=== PATIENT | female | born 2000 | race Caucasian/White ===

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

== ENCOUNTER 2018-01-13 08:00 | Outpatient (CLI) | payer OTHER | END 2018-01-13 08:01 | disposition home or self-care (01) | LOC: LAB.R 08:00 | PROVIDERS: ATTEND Physician Assistant | DX: N39.0 Urinary tract infection, site not specified (principal) | CPT/HCPCS: 87086; 87181 ==

== ENCOUNTER 2023-03-04 07:45 | Outpatient (CLI) | payer OTHER ==
--- NOTE | 2023-03-04 17:59 | XRAY Report ---
PROCEDURE: Foot 3 View LT INDICATIONS: LEFT 5TH MT FRACTURE TECHNIQUE: 3 views of the foot were acquired. COMPARISON: X-ray foot 02/22/2023 FINDINGS: Bones: There is mild appearance of increased diastases of the fifth metatarsal base fracture. Soft tissues: No suspicious soft tissue calcifications or masses. IMPRESSION: Mild increased diastases of fifth metatarsal base fracture. Reviewed by: Myra Gross MD on 03/04/2023 5:57 PM PDT Approved by: Myra Gross MD on 03/04/2023 5:57 PM PDT Station ID: [id number]
== END 2023-03-04 23:59 | disposition home or self-care (01) ==
LOC: DI.WOS 07:45
PROVIDERS: ATTEND Physician Assistant Surgical
DX: S92.352A Displaced fracture of fifth metatarsal bone, left foot, initial encounter for closed fracture (principal)

== ENCOUNTER 2023-03-25 08:00 | Outpatient (CLI) | payer OTHER ==
--- NOTE | 2023-03-25 16:20 | XRAY Report ---
PROCEDURE: Foot 3 View LT INDICATIONS: LEFT 5TH MT FRACTURE TECHNIQUE: 3 views of the foot were acquired. COMPARISON: None. FINDINGS: Bones: Slight interval bone remodeling at the fracture at the base of the fifth metatarsal. Decrease d diastases. Soft tissues: No suspicious soft tissue calcifications or masses. IMPRESSION: Mild interval healing of the fifth metacarpal fracture. Reviewed by: Jack Epps on 03/25/2023 4:19 PM PDT Approved by: Jack Epps on 03/25/2023 4:19 PM PDT Station ID: [id number]
== END 2023-03-25 23:59 | disposition home or self-care (01) ==
LOC: DI.WOS 08:00
PROVIDERS: ATTEND Physician Assistant Surgical
DX: S92.352D Displaced fracture of fifth metatarsal bone, left foot, subsequent encounter for fracture with routine healing (principal)

== ENCOUNTER 2023-04-27 15:00 | Outpatient (CLI) | payer OTHER ==
[2023-04-27 20:48] LABS: NEISSERIA GONORRHOEAE DNA NEGATIVE (NEGATIVE); TRICHOMONAS VAGINALIS DNA NEGATIVE (NEGATIVE)
[2023-04-27 20:52] LABS: CHLAMYDIA TRACHOMATIS DNA POSITIVE (NEGATIVE)
== END 2023-04-27 15:15 | disposition home or self-care (01) ==
LOC: LAB.N 15:00
PROVIDERS: ATTEND Specialist
DX: Z20.2 Contact with and (suspected) exposure to infections with a predominantly sexual mode of transmission (principal)
CPT/HCPCS: 87491; 87591; 87661